=== PATIENT | female | born 1980 | race Caucasian/White ===

== ENCOUNTER → 2016-02-20 | Day surgery (SDC) | payer MEDICAID ==
[~2016-02-20] VITALS: Ht 177.8 cm; Wt 117.9 kg
[~2016-02-20] MED LIST: AUGMENTIN 875-1 EACH PO; CELEXA20 MG PO; DICLOFENAC SODI75 M2 PO; FLEXERIL10 M1 PO; FLEXERIL10 MG PO; HYDROCHLOROTH12.5 M1 PO; IBUPROFEN800 MG PO; MEDROL 4MG. DOSE4 MG PO; NEURONTIN 300M300 MG PO; POLYTRIM 10ML O10 ML OP; TAMIFLU 75MG CA75 MG PO; TESSALON PERLE100 MG PO; TIZANIDINE HCL 44 MG NG; TRAMADOL 50MG T50 MG PO; VIBRAMYCIN 100100 MG PO; VICODIN 5/500 T1 TAB PO; VOLTAREN75 MG PO; ZANAFLEX4 MG NG
[2016-02-20 09:09] VITALS: BP 146/77
[2016-02-20 09:16] VITALS: BP 146/77
[2016-02-20 09:32] VITALS: BP 146/77
[2016-02-20 09:36] VITALS: BP 115/61
--- NOTE | 2016-02-20 09:42 | Procedure Note ---
Procedure detail Date of procedure: 02/20/16 Anesthesiologist: Luis Huerta CRNA Complications: None Pre-procedure diagnosis: Degenerative disc disease of the lumbar spine Post-procedure diagnosis: Same Indications for procedure: Patient's a pleasant 35-year-old white female that recent came to our pain clinic for consultation regarding chronic low back pain secondary to degenerative disc disease lumbar spine multiple levels and multilevel disc bulge. Lumbar radiculopathy symptoms. Patient describes her pain as constant, dull, aching. Patient rates her low back pain 8/10. Patient works third shift a [employer] in [place]. Patient had a recent visit with Dr. Beyer. He recommended no surgery. I discussed in detail with the patient regarding medication as well as injective therapy. I discussed the risks and benefits of the lumbar epidural steroid injection to the patient. She wishes to proceed with that today. Procedure detail: Procedure: Lumbar epidural steroid injection under fluoroscopy Informed consent was obtained and the risks and benefits of the procedure were explained to the patient. The patient was taken to the procedure room and noninvasive monitors placed, including noninvasive blood pressure cuff and pulse oximeter. The back was viewed using C-arm Fluoroscopy and prepped using Betadine as a cleansing solution and the L4-L5 interspace was palpated. Skin and subcutaneous tissues were anesthetized using lidocaine 1.5% and a 25-gauge needle. After this, an 18-gauge Touhy epidural needle was placed into the L4-L5 interspace and advanced using fluoroscopic guidance and loss of resistance to air until the epidural space was encountered. After confirmation of needle placement in the epidural space, with dye, a solution containing lidocaine 1.5%, 4 mL and Depo-Medrol 80 mg were incrementally injected into the lumbar epidural space. The patient tolerated the procedure well with no complications. The patient was observed in the Pain Clinic and then discharged home neurologically intact. Plan and disposition: Patient was evaluated 10 minutes postprocedure. She is doing well. She'll follow up with us in the pain For further evaluation. at 0941
[2016-02-20 09:53] VITALS: BP 149/73
== END ==
LOC: PM 08:45
PROC: 3E0R33Z Introduction of Anti-inflammatory into Spinal Canal, Percutaneous Approach (ICD-10-PCS; principal; 2016-02-20)
PROC: 3E0R3BZ Introduction of Anesthetic Agent into Spinal Canal, Percutaneous Approach (ICD-10-PCS; 2016-02-20)
DX: M51.16 Intervertebral disc disorders with radiculopathy, lumbar region (principal)
CPT/HCPCS: J1040; Q9966

== ENCOUNTER 2016-10-28 16:56 | Emergency (ER) | payer MEDICAID ==
[~2016-10-28] VITALS: Ht 177.8 cm; Wt 122.5 kg
[~2016-10-28 16:56] MED LIST changes: +ACETAMINOPHEN-O1 TAB PO
--- NOTE | 2016-10-28 17:15 | Urgent Treatment Center Report ---
History of Present Issue Date/Time Seen by Provider 10/28/16 1714 Visit Reason Pt arrived:Walked Presenting Problem:PT HAS EAR ACHE ON THE LT SIDE WITH SWELLING ON THE NECK. Location if Accident: Onset of symptoms date/time:/ or onset unknown for:MEDICAL HX UNKNOWN Have you (or family members/close friends) recently traveled outside the [place]? N If Yes, where/when: Have you had exposure to infectious disease within the past month? TB? Other? Specify: Patient states that she has been having pain in her left ear and the left side of her face now for several days States that she noticed that her lymph node on her left side of her neck was swollen and felt like it was really big and it hurt when she would swallow State today pain in ear got worse and her throat felt more scratchy than it did yesterday ALLERGIES Coded Allergies: codeine (Intermediate, I-HIVES 10/20/15) History Medical History General CAD? No Angina: No [place]: No Hypertension? Yes Hyperlipidemia? No CHF? No DVT? No PE? No COPD? No Asthma? No Anemia? No GERD? No Gastric ulcers? No GI Bleed? No Hernia? No Thyroid Problems? No Hypothyroidism? No CVA? No Seizures? No Diabetes? No Renal Insuffiency? No UTI? Yes Stones? No BPH? No GB Disease: Yes Nephritic Syndrome? No Asplenia? No Hepatitis? No Sickle Cell Disease? No Arthritis? No Migraines? No Cataracts? No Glaucoma? No MRSA? No HIV? No TB? No Anxiety? No Depression? No Cancer? No More? No Immunization HX DT/Tetanus 10/21/15 Flu [id number] Pneumonia NEVER Surgical Hx Previous Surgery?Y HIP PINNING BILATERALLY Appendix Gallbladd X 3 Tonsils D&C X 3 UTERINE ABLATION Tubal Ligation Family History Family HX Diabetes Yes CAD Yes Hypertension Yes Hyperlipidemia Yes Cancer Yes TB No Social History Smoking Hx Smoker: Current Every Day Smoker Tobacco: No Type Cigarettes Packs/day < 1 Pack Alcohol Alcohol: No Review of Systems All Other Systems Reviewed and Negative ENT ear pain, throat pain. Physical Exam Vital Signs Vital Signs Date Time Temp Pulse Resp B/P Pulse O2 O2 Flow FiO2 Ox Delivery Rate 10/28 1707 98.0 110 18 149/80 98 General Appearance normal appearance, WD/WN, no apparent distress Ear, Nose, Throat Throat red, left ear red, Tm buldging, lymph node left side neck swollen tender Respiratory Status Yes: trachea midline, chest symmetrical, non tender chest. No: respiratory distress. 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 No Results/Orders Laboratory Tests 10/28/161820: Group A Strep Screen NOT DETECTED 10/28/161732: Sodium 137, Potassium 3.8, Chloride 102, Carbon Dioxide 27, BUN 10, Creatinine 0.6, Estimated Creat Clear 255 H, Estimated GFR (MDRD) 114, Glucose 135 H, Calcium 9.4, Total Bilirubin 0.3, AST 21, ALT 42, Alkaline Phosphatase 80, Total Protein 7.8, Albumin 3.7, Globulin 4.1 H, Albumin/Globulin Ratio 0.9 L, WBC 19.0 H, RBC 4.96, Hgb 14.2, Hct 41.2, MCV 83.1, RDW 12.8, Plt Count 285, MPV 7.2 L, Gran % 74.2, Gran # 14.1 H, Total Counted Pending, Lymphocytes % 19.2, Monocytes % 4.9, Eosinophils % 1.3, Basophils % 0.4, Neutrophils Pending, Lymphocytes (Manual) Pending, Lymphocytes # 3.7, Monocytes # 0.9, Eosinophils # 0.3, Basophils # 0.1, Platelet Estimate Pending, PUBS MCHC 34.4, MCH 28.6, Monoscreen NEGATIVE Orders Procedure Date/time Status [facility] STREP SCREEN 10/28 1820 Complete CBC WITH AUTO DIFF 10/28 1820 Active CHEM 12 PROFILE 10/28 1820 Complete DIFFERENTIAL-WBC 10/28 1732 Active MONO SCREEN 10/28 1724 Complete Progress [facility] Progress Notes Comment Dr Riri davidson was consulted and came to [facility] and saw patient and agreed with discussed treatment to place patient on antibiotics and refer to ENT for further treatment. Patient was placed on Antibiotic and CBC and CMP was added to blood already in lab and patient dc'd home Departure Departure Time of Disposition 1821 Disposition DC Home or Self Care(routine) Clinical Impression Primary Impression: Acute bacterial pharyngitis Condition STABLE Referrals Marcelina RODRIGUEZ, Camilla BEJARANO APRN,KIKA Roblero MD,Wellington Vicente Patient Instructions DI for Ear Pain-Adult, Sore Throat Additional Instructions Follow up with one of ENT listed above next week and see Dr Bejarano if no improvment in symptoms in one week or worsening of symptoms If you began having problems swallowing or breathing straight to the ER Return if needed Take medication as prescribed Warm salt water gargles will help with sore throat * Monitor Temp. Tylenol and/or Ibuprofen as needed. ER if fever is no less than 101 despite alternating Tylenol and Ibuprofen * Encourage fluids, water, Gatorade, powerade, pedialyte if /toddler/or child * Warm salt water gargles for throat irritation *Warm fluids *Sore throat lozenges *Sleep elevated Discharge Counseling Counseled pt/family regarding diagnosis, test results, medications/RX, home care, follow up needs Prescriptions Current Visit Scripts CEFDINIR (Cefdinir) 300 MG PO BID #20 CAP at 0302
--- NOTE | 2016-10-28 17:15 | Urgent Treatment Center Report ---
History of Present Issue Date/Time Seen by Provider 10/28/16 1714 Visit Reason Pt arrived:Walked Presenting Problem:PT HAS EAR ACHE ON THE LT SIDE WITH SWELLING ON THE NECK. Location if Accident: Onset of symptoms date/time:/ or onset unknown for:MEDICAL HX UNKNOWN Have you (or family members/close friends) recently traveled outside the [place]? N If Yes, where/when: Have you had exposure to infectious disease within the past month? TB? Other? Specify: Patient states that she has been having pain in her left ear and the left side of her face now for several days States that she noticed that her lymph node on her left side of her neck was swollen and felt like it was really big and it hurt when she would swallow State today pain in ear got worse and her throat felt more scratchy than it did yesterday ALLERGIES Coded Allergies: codeine (Intermediate, I-HIVES 10/20/15) History Medical History General CAD? No Angina: No [place]: No Hypertension? Yes Hyperlipidemia? No CHF? No DVT? No PE? No COPD? No Asthma? No Anemia? No GERD? No Gastric ulcers? No GI Bleed? No Hernia? No Thyroid Problems? No Hypothyroidism? No CVA? No Seizures? No Diabetes? No Renal Insuffiency? No UTI? Yes Stones? No BPH? No GB Disease: Yes Nephritic Syndrome? No Asplenia? No Hepatitis? No Sickle Cell Disease? No Arthritis? No Migraines? No Cataracts? No Glaucoma? No MRSA? No HIV? No TB? No Anxiety? No Depression? No Cancer? No More? No Immunization HX DT/Tetanus 10/21/15 Flu [id number] Pneumonia NEVER Surgical Hx Previous Surgery?Y HIP PINNING BILATERALLY Appendix Gallbladd X 3 Tonsils D&C X 3 UTERINE ABLATION Tubal Ligation Family History Family HX Diabetes Yes CAD Yes Hypertension Yes Hyperlipidemia Yes Cancer Yes TB No Social History Smoking Hx Smoker: Current Every Day Smoker Tobacco: No Type Cigarettes Packs/day < 1 Pack Alcohol Alcohol: No Review of Systems All Other Systems Reviewed and Negative ENT ear pain, throat pain. Physical Exam Vital Signs Vital Signs Date Time Temp Pulse Resp B/P Pulse O2 O2 Flow FiO2 Ox Delivery Rate 10/28 1707 98.0 110 18 149/80 98 General Appearance normal appearance, WD/WN, no apparent distress Ear, Nose, Throat Throat red, left ear red, Tm buldging, lymph node left side neck swollen tender Respiratory Status Yes: trachea midline, chest symmetrical, non tender chest. No: respiratory distress. 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 No Results/Orders Laboratory Tests 10/28/161820: Group A Strep Screen NOT DETECTED 10/28/161732: Sodium 137, Potassium 3.8, Chloride 102, Carbon Dioxide 27, BUN 10, Creatinine 0.6, Estimated Creat Clear 255 H, Estimated GFR (MDRD) 114, Glucose 135 H, Calcium 9.4, Total Bilirubin 0.3, AST 21, ALT 42, Alkaline Phosphatase 80, Total Protein 7.8, Albumin 3.7, Globulin 4.1 H, Albumin/Globulin Ratio 0.9 L, WBC 19.0 H, RBC 4.96, Hgb 14.2, Hct 41.2, MCV 83.1, RDW 12.8, Plt Count 285, MPV 7.2 L, Gran % 74.2, Gran # 14.1 H, Total Counted Pending, Lymphocytes % 19.2, Monocytes % 4.9, Eosinophils % 1.3, Basophils % 0.4, Neutrophils Pending, Lymphocytes (Manual) Pending, Lymphocytes # 3.7, Monocytes # 0.9, Eosinophils # 0.3, Basophils # 0.1, Platelet Estimate Pending, PUBS MCHC 34.4, MCH 28.6, Monoscreen NEGATIVE Orders Procedure Date/time Status [facility] STREP SCREEN 10/28 1820 Complete CBC WITH AUTO DIFF 10/28 1820 Active CHEM 12 PROFILE 10/28 1820 Complete DIFFERENTIAL-WBC 10/28 1732 Active MONO SCREEN 10/28 1724 Complete Progress [facility] Progress Notes Comment Dr Riri davidson was consulted and came to [facility] and saw patient and agreed with discussed treatment to place patient on antibiotics and refer to ENT for further treatment. Patient was placed on Antibiotic and CBC and CMP was added to blood already in lab and patient dc'd home Departure Departure Time of Disposition 1821 Disposition DC Home or Self Care(routine) Clinical Impression Primary Impression: Acute bacterial pharyngitis Condition STABLE Referrals Marcelina RODRIGUEZ, Camilla BEJARANO APRN,KIKA Roblero MD,Wellington Vicente Patient Instructions DI for Ear Pain-Adult, Sore Throat Additional Instructions Follow up with one of ENT listed above next week and see Dr Bejarano if no improvment in symptoms in one week or worsening of symptoms If you began having problems swallowing or breathing straight to the ER Return if needed Take medication as prescribed Warm salt water gargles will help with sore throat * Monitor Temp. Tylenol and/or Ibuprofen as needed. ER if fever is no less than 101 despite alternating Tylenol and Ibuprofen * Encourage fluids, water, Gatorade, powerade, pedialyte if /toddler/or child * Warm salt water gargles for throat irritation *Warm fluids *Sore throat lozenges *Sleep elevated Discharge Counseling Counseled pt/family regarding diagnosis, test results, medications/RX, home care, follow up needs Prescriptions Current Visit Scripts CEFDINIR (Cefdinir) 300 MG PO BID #20 CAP at 0268
[2016-10-28] MEDS ORDERED: OMNICEF 300 MG300 MG PO (18:25)
[2016-10-28 18:30] LABS: HEMOGLOBIN 14.2 g/dL (12.2-16.2); LYMPH # 3.7 K/mm3 (0.7-4.5); LYMPH % 19.2 % (10-50.0)
[2016-10-28 18:45] VITALS: BP 149/80
[2016-10-28 19:23] LABS: NEUTROPHILS 69 % (42-76)
== END 2016-10-28 18:45 | disposition home or self-care (01) ==
LOC: UTC 16:56
PROVIDERS: Nurse Practitioner
DX: J02.8 Acute pharyngitis due to other specified organisms (principal); B96.89 Other specified bacterial agents as the cause of diseases classified elsewhere; Z72.0 Tobacco use